=== PATIENT | female | born 2005 | race Hispanic/Latino ===

== ENCOUNTER 2024-04-14 20:02 | Emergency (ER) | payer OTHER ==
[~2024-04-14] VITALS: Ht 162.6 cm; Wt 67.0 kg
[2024-04-14] MEDS ORDERED: ACETAMINOPHEN 500 MG TAB PO ONE (20:55)
[2024-04-14 22:05] VITALS: BP 111/54
== END 2024-04-14 22:05 | disposition home or self-care (01) | DRG 833 ==
LOC: ED 20:02
DX: O99.519 Diseases of the respiratory system complicating pregnancy, unspecified trimester (principal); J06.9 Acute upper respiratory infection, unspecified; Z3A.00 Weeks of gestation of pregnancy not specified; Z20.822 Contact with and (suspected) exposure to COVID-19